=== PATIENT | female | born 1990 | race Caucasian/White ===

== ENCOUNTER → 2018-07-25 14:12 | Outpatient (CLI) | payer OTHER ==
[2016-08-03 11:52] VITALS: BMI 26.7
[~2018-07-25 14:12] MED LIST: IBUPROFEN600 MG PO; PERCOCET 5-3251 TAB PO; PRENATAL COMPLE1 TAB PO; REGLAN5 MG PO
== END | disposition home or self-care (01) ==
LOC: D.CT 14:12
DX: R10.30 Lower abdominal pain, unspecified (principal)